=== PATIENT | male | born 1995 ===

== ENCOUNTER 2017-11-17 04:42 | Emergency (ER) | payer SELFPAY ==
--- NOTE | 2017-11-17 06:33 | C.PDOC ---
History Of Present Illness Patient BIBA for alcohol intoxication and agitation, accompanied by police. He admits to drinking alcohol tonight but denies drug use. As per girlfriend and grandmother, there was a family argument tonight and also a recent in the family (patient's cousin); so patient has been drinking more than usual. Time Seen by Provider: 11/17/17 04:48 Chief Complaint (Nursing): Substance Abuse History Per: Family History/Exam Limitations: intoxication Onset/Duration Of Symptoms: Hrs Current Symptoms Are (Timing): Still Present Modifying Factor(s): Alcohol Severity: Moderate Associated Symptoms: denies: Suicidal Thoughts Involuntary Hold By: Emergency Physician Past Medical History Reviewed: Historical Data, Nursing Documentation, Vital Signs Vital Signs: Last Vital Signs Temp 98 F 11/17/17 04:44 Pulse 112 H 11/17/17 04:44 Resp 20 11/17/17 04:44 BP 144/86 11/17/17 04:44 Pulse Ox 100 11/17/17 04:44 - Medical History PMH: No Chronic Diseases Family History: States: No Known Family Hx - Social History Hx Alcohol Use: Yes Hx Substance Use: No (DENIES) Review Of Systems Except As Marked, All Systems Reviewed And Found Negative. Cardiovascular: Negative for: Chest Pain Respiratory: Negative for: Shortness of Breath Gastrointestinal: Negative for: Nausea, Vomiting, Abdominal Pain Psych: Positive for: Other (alcohol intoxication) Physical Exam - Physical Exam Appears: Combative, Agitated, Other (appears intoxicated) Head: Atraumatic, Normacephalic Cardiovascular: Rhythm Regular (mildly tachycardic) Respiratory: Normal Breath Sounds, No Rales, No Rhonchi, No Wheezing Extremity: Normal ROM, No Tenderness Extremity: Bilateral: Atraumatic, Normal Color And Temperature, Normal ROM Neurological/Psych: Other (awake, alert, intoxicated, moving all 4 extremities spontaneously) ED Course And Treatment O2 Sat by Pulse Oximetry: 100 (RA) Pulse Ox Interpretation: Normal Progress Note: Patient combative & agitated, cursing at staff and trying to get out of bed. Initially placed on 4 point restraints. Accucheck and UDS ordered. Family confirms that he was drinking alcohol, and deny any drug use. 6:35am- Patient resting comfortably, in no distress, arousable to verbal stimuli. Disposition - Disposition Disposition Time: 07:00 Condition: STABLE - Clinical Impression Clinical Impression: Alcohol intoxication Physician Patient Turnover Patient Signed Over To: Teddy Hobson DO Handoff Comments: pending sobriety, reassessment
[2017-11-17 09:51] VITALS: BP 120/66; PULSE 81; RESP 18; TEMP 98; O2SAT 99
== END 2017-11-17 10:52 | disposition home or self-care (01) ==
LOC: C.ER 04:42
DX: F10.129 Alcohol abuse with intoxication, unspecified (principal); Y90.9 Presence of alcohol in blood, level not specified